=== PATIENT | female | born 1955 | race Caucasian/White ===

== ENCOUNTER 2019-09-04 11:10 | Outpatient (CLI) | payer MEDICARE, OTHER, SELFPAY ==
[2019-09-04 11:58] LABS: Basophils % 0.7 %; Eosinophils # 0.1 10^3/uL (0.0-0.8); Eosinophils % 1.8 %; Hematocrit 41.4 % (37.0-47.0); Hemoglobin 13.2 g/dL (11.5-15.3); Lymphocytes # 1.5 10^3/uL (0.8-4.8); Lymphocytes % 25.2 %; Mean Corpuscular HGB Conc 31.9 g/dL (30.0-36.0); Mean Corpuscular Hemoglobin 31.7 pg (28.0-34.0); Mean Corpuscular Volume 99.3 fL (81-99); Mean Platelet Volume 10.5 fL (7.4-10.4); Monocytes # 0.6 10^3/uL (0.2-0.9); Monocytes % 10.2 %; Neutrophils # 3.8 10^3/uL (1.8-7.7); Neutrophils % 61.9 %; Nucleated Red Blood Cells % 0 %; Platelet Count 245 10^3/cmm (130-400); Red Blood Count 4.17 10^6/uL (4.1-5.3); Red Cell Distribution Width 13.6 % (12.1-15.1); White Blood Count 6.1 10^3/uL (4.0-10.0)
[2019-09-04 12:11] LABS: Alanine Aminotransferase 17 U/L (0-33); Albumin Level 4.3 g/dL (3.5-5.2); Alkaline Phosphatase 129 IU/L (35-105); Anion Gap 16.1 (5-19); Aspartate Amino Transferase 26 U/L (0-32); Blood Urea Nitrogen 11 mg/dL (8-23); Calcium 9.1 mg/dL (8.5-10.5); Carbon Dioxide 21 mmol/L (22-29); Chloride 103 mmol/L (98-107); Ferritin 534 ng/mL (15-150); Globulin 3.2 g/dL (1.3-4.6); Glomerular Filtration Rate 123.4 mL/min (90-130); Glucose 108 mg/dL (65-115); Iron 77 ug/dL (37-145); Percent Saturation 38.3 % (20-50); Potassium 4.1 mmol/L (3.5-5.1); Sodium 136 mmol/L (136-145); Total Bilirubin 0.3 mg/dL (0.15-1.2); Total Iron Binding Capacity 201 mcg/dl; Total Protein 7.5 g/dL (6.6-8.7); Unsaturated Iron Binding 124 ug/dL (112-347)
--- NOTE | 2019-09-05 06:46 | ONC FU_ITS ---
Dr. Holloway Patient Follow-Up Note Patient: Sharla Barreto Unit #: [id number]: 1955 Dicatated By: Emmanuel Holloway M.D.Date of Visit:Sep 04, 2019 Onc Med Follow-up/Prog Note Chief Complaint: Anemia. History of Present Illness: This is 64 year-old woman with recurrent iron deficiency anemia. She also was found to have B12 deficiency. She has a complex medical history including systemic lupus erythematosus diagnosed in 1993 when she presented with seizures and diffuse anasarca. The main sequela of disease has been inflammatory arthritis. In 2010 she had an episode of severe anemia while on Imuran. She required 4 units of packed red blood cell transfusion. Endoscopy and colonoscopy in 2010 showed gastritis. She had normal biopsy of the terminal ileum. Her hemoglobin remained stable, with no further transfusions required for several years. She continued to be monitored with a CBC every 3-6 months. She required transfusion again in October 2014 in association with a hospitalization for pneumonia/sepsis. She was found to have a recurrent microcytic anemia on laboratory evaluation from 08/21/2014. Her hemoglobin measured 8.4 g/dL, MCV 80, RDW increased 18.3. She had slight left shift on differential with WBC 11.2, platelets 327. Imuran had been tapered off. Further laboratory analysis showed severe iron deficiency, with ferritin 7.4, iron saturation 4.9%. One 1 of 3 Hemoccult stools was positive. Her repeat colonoscopy on 08/29/2014 was unrevealing. She was first seen by Dr. Workman on 09/05/2014. With 5 doses of IV Venofer in August 2014 her hemoglobin recovered to 10.3 g/dL. She required transfusion again in October 2014 in association with a hospitalization for pneumonia/sepsis. She received further parenteral iron replacement with 2 doses of Injectafer in April 2015. She was then found to be anemic again in August 2016, requiring transfusion of 2 units of PRBC's on 08/17/2016. She was seen for a follow-up visit on 08/31/2016. Her CBC at that time showed hemoglobin 9.4 g with hypochromic/microcytic red cell indices. Her serum iron studies show transferrin saturation low at 6.9% with ferritin low at 7.9 ng/mL, consistent with iron deficiency. She was given further parenteral iron replacement with infusions of Injectafer on 09/22/2016 and 09/29/2016. She had a very good objective response with her repeat CBC in October 2016 showing hemoglobin increased to 13.6 g. As of 09/05/2017 her hemoglobin had dropped back to 7.9 g. At that time she did receive a transfusion of 2 units of packed red blood cells, and she was transfused again on 10/19/2017. Her repeat CBC from 01/18/2018 showed hemoglobin 9.3 g with hematocrit 29.0%. The red cell indices were normal. The white blood cell count was 6700 and the platelet count was 285,000. She was seen for a followup visit on 02/15/2018. Her hemoglobin was 7.0 g with borderline low RBC indices. The WBC was 3800 and the platelet count was 247,000. Her serum iron studies showed low transferrin saturation at 4.6% with ferritin low at 5.9 ng/mL, consistent with iron deficiency. Her B12 level also was low at 191 pg/mL. She was given parenteral iron replacement with infusions of Injectafer on 02/16/2018 and on 02/23/2018. She also began on B12 injections. Follow-up CBC on 03/26/2018 showed hemoglobin up to 12.8 g. On 04/11/2018 she underwent hiatal hernia repair at [facility]. She was placed on a restricted diet following the surgery, but she tolerated the procedure well. Her medical history is significant for rheumatoid arthritis, COPD, and GERD. She also has osteoporosis with associated vertebral compression fractures. She is a nonsmoker. INTERIM HISTORY: She was seen for a follow-up visit in June 2018. Her hemoglobin was normal at 13.1 g with white blood cell count mildly decreased at 3300 and platelet count normal at 260,000. She continued her monthly B12 injections. She is seen for a scheduled visit. She has been feeling good generally. She says her energy has been better since she has been on the B12 injections. She has normal activity. Her appetite is not very good. Her weight is down 6 pounds since her last visit. She has not had fever or night sweats. She says her breathing is also better. She is using inhalers. She does not complain of cough and she has not been having chest pain. She has had episodes of nausea and diarrhea at least 2 or 3 times a week since her hiatal hernia surgery. She is not having any overt GERD symptoms. She has no complaints. She does have joint pain. She has not been on any specific treatment for the rheumatoid arthritis. She has no focal neurologic symptoms. Medications: Albuterol Aerosol, solution Inhalation PRN, calcium magnesium zinc 3 Tablet daily, Dramamine 1 Tablet (of 50 mg) Oral t.i.d. PRN, Estradiol 1 Tablet (of 1 mg) Oral on F, FentaNYL 1 (50 mcg/hr) Patch 72 Hr Transdermal q 72 hours, Hydrocodone-Acetaminophen 1 Tablet (of 10-325 mg) Oral four times a day PRN, K-Tab 1 (20 meq) Tablet, controlled release Oral daily, Loratadine 1 Capsule (of 10 mg) Oral daily PRN, Spironolactone 1 (50 mg) Tablet Oral b.i.d. Allergies: Augmentin, Cipro, Methotrexate, and NSAIDS. Review of Systems: Constitutional - Her energy is better. She has normal activity. Her appetite is not very good and her weight is down about 5 pounds since her last visit. No fever, chills, hot flashes, or night sweats. ECOG score is 0, ENMT - No sinus congestion/drainage. No mouth sores. No sore throat or difficulty swallowing, Hematologic/Lymphatic - No abnormal bruising or bleeding, Respiratory - Her breathing is better. She continues to use her inhalers. No cough. No pleuritic pain or hemoptysis, Cardiovascular - No angina pain. No palpitations, Gastrointestinal - She has episodes of nausea and diarrhea 2-3 times a week. No heartburn or acid reflux. No blood in the stool or black stools, Genitourinary (F) - No dysuria or hematuria. No urinary frequency. No urgency or incontinence, Musculoskeletal - She has arthritis pain. She is currently not on any treatment for her RA, Integumentary - No skin complications, Neurologic - No headache or dizziness. No numbness/paresthesias or other focal neurologic symptoms, Psychiatric - No anxiety or depression. She does not sleep well at night. Vital Signs: Performed on Sep 04, 2019 12:48 Height - 58.00 in Weight - 117.8 lbs (LOW) BSA - 1.45 sq.m BMI - 24.62 Temperature - 98.5 F Pulse - 106 /min (HIGH) Respiration - 17 /min BP - 139/80 mm(hg) O2 Sat - 97 % Pain - 3 Physical Examination: Constitutional - She looks pretty good generally, Eyes - Sclerae nonicteric. Conjunctivae clear, ENMT - There are no lesions noted in the oral cavity, Hematologic/Lymphatic - No cervical, clavicular, or axillary adenopathy, Respiratory - Lungs are clear, Cardiovascular - Heart rhythm is regular. There is no murmur, gallop, or rub noted, Abdomen - Soft. Liver and spleen are not enlarged. There is no abdominal mass or ascites noted and there is no inguinal adenopathy, Extremities - No edema, Neurologic - No focal neurologic deficits noted. Lab/Imaging: Test performed on Sep 04, 2019 11:25 Ferritin 534 ng/mL Iron 77 ug/dL Sodium 136 mmol/L Potassium 4.1 mmol/L Chloride 103 mmol/L CO2 21 mmol/L UIBC 124 ug/dL Anion Gap 16.1 BUN 11 mg/dL Creatinine 0.5 mg/dL Cr Clearance (Est) 93.36 mL/min eGFR 123.4 mL/min Glucose 108 mg/dL Calcium 9.1 mg/dL Protein, Total 7.5 g/dL Albumin 4.3 g/dL Globulin 3.2 g/dL Bilirubin, Total 0.3 mg/dL ALT (SGPT) 17 U/L AST (SGOT) 26 U/L Alkaline Phosphatase 129 IU/L WBC 6.1 10 3/uL RBC 4.17 10 6/uL HGB 13.2 g/dL HCT 41.4 % MCV 99.3 fL MCH 31.7 pg MCHC 31.9 g/dL RDW 13.6 % Platelet Count 245 10 3/cmm MPV 10.5 fL Neutrophils 3.8 10 3/uL Lymphocytes 1.5 10 3/uL Monocytes 0.6 10 3/uL Eosinophils 0.1 10 3/uL Basophils 0.0 10 3/uL Neutrophil % 61.9 % Lymphocyte % 25.2 % Monocyte % 10.2 % Eosinophil % 1.8 % Basophils % 0.7 % Impression: 1. Patient with recurrent iron deficiency anemia. The cause is uncertain, but it appears to be due to inadequate oral iron absorption as her GI evaluation has been unrevealing. She was given parenteral iron replacement with the Venofer for in August 2014. 2. She has underlying rheumatoid arthritis, and she may have some component chronic disease anemia as well. 3. In October 2014 she required transfusion in association with an episode of multilobular pneumonia and sepsis. She received additional parenteral iron replacement with Injectafer in April 2015. 4. She again required transfusion in August 2016 in association with recurrent respiratory tract infections. Her other medical illnesses include: 5. COPD. 6. GERD. 7. Osteoporosis with vertebral compression fractures. In August 2016 she had become anemic again, severe enough that she did require transfusion. On a subsequent follow-up visit in August 2016, she was still mildly anemic and her serum studies were clearly consistent with iron deficiency. She received additional parenteral iron replacement with infusions of Injectafer on 09/22/2016 and 09/29/2016. She has had a good objective response. As of August 2017, she was significantly anemic again. She required transfusion of 2 units of PRBC on 09/07/2017 and again on 10/19/2017. As of 01/18/2018 she was still moderately anemic with hemoglobin 9.3 g and hematocrit 29%. Her red cell indices, though, were normal. As of her followup visit on 02/15/2018 she was still significantly anemic, hemoglobin 7.0 g. Her lab studies showed both iron deficiency and B12 deficiency. She has had a good objective response to replacement with parenteral iron and B12 injections. On 04/11/2018 she underwent hiatal hernia repair at [facility]. She tolerated the procedure well. During subsequent follow-up she has maintained normal hemoglobin/hematocrit levels and normal transferrin saturation. Overall, she appears to be doing well clinically. Plan: She will continue her monthly B12 injections. She will continue her regular followup with Dr. Lyon. I will see her again as needed. Signed By: Emmanuel Holloway M.D. <<Signature on File>>
== END 2019-09-04 11:11 | disposition home or self-care (01) ==
LOC: ONCMED 11:10
PROVIDERS: Family Provider Family Medicine; PCP Family Medicine; Visit Provider Internal Medicine Medical Oncology
DX: E53.8 Deficiency of other specified B group vitamins (principal); D50.9 Iron deficiency anemia, unspecified; M32.9 Systemic lupus erythematosus, unspecified; M06.9 Rheumatoid arthritis, unspecified; J44.9 Chronic obstructive pulmonary disease, unspecified; K21.9 Gastro-esophageal reflux disease without esophagitis; M81.0 Age-related osteoporosis without current pathological fracture; Z79.51 Long term (current) use of inhaled steroids; Z79.891 Long term (current) use of opiate analgesic; Z87.440 Personal history of urinary (tract) infections
CPT/HCPCS: 36415; 80053; 82728; 83540; 83550; 85025; G0463

== ENCOUNTER → 2019-10-09 13:04 | Outpatient (BNVA) | payer MEDICARE, OTHER, SELFPAY | PROVIDERS: Family Provider Family Medicine; PCP Family Medicine; Visit Provider Family Medicine | DX: M25.531 Pain in right wrist (principal); S52.91XA Unspecified fracture of right forearm, initial encounter for closed fracture; X58.XXXA Exposure to other specified factors, initial encounter | CPT/HCPCS: 73110 ==

== ENCOUNTER 2019-10-10 11:13 | Outpatient (CLI) | payer MEDICARE, OTHER, SELFPAY | END 2019-10-10 11:14 | disposition home or self-care (01) | LOC: SPT 11:14 | PROVIDERS: Family Provider Family Medicine; PCP Family Medicine; Visit Provider Specialist | DX: Z46.89 Encounter for fitting and adjustment of other specified devices (principal); S52.591D Other fractures of lower end of right radius, subsequent encounter for closed fracture with routine healing; X58.XXXD Exposure to other specified factors, subsequent encounter | CPT/HCPCS: L3982 ==

== ENCOUNTER → 2019-10-29 11:06 | Outpatient (BNVA) | payer MEDICARE, OTHER, SELFPAY | PROVIDERS: Family Provider Family Medicine; PCP Family Medicine; Visit Provider Specialist | DX: S52.501A Unspecified fracture of the lower end of right radius, initial encounter for closed fracture (principal); S52.601A Unspecified fracture of lower end of right ulna, initial encounter for closed fracture | CPT/HCPCS: 73110 ==

== ENCOUNTER → 2019-11-20 11:14 | Outpatient (BNVA) | payer MEDICARE, OTHER, SELFPAY | PROVIDERS: Family Provider Family Medicine; PCP Family Medicine; Visit Provider Specialist | DX: S52.501A Unspecified fracture of the lower end of right radius, initial encounter for closed fracture (principal); S52.601A Unspecified fracture of lower end of right ulna, initial encounter for closed fracture; X58.XXXA Exposure to other specified factors, initial encounter | CPT/HCPCS: 73110 ==

== ENCOUNTER 2019-12-03 10:27 | Outpatient (RCR) | payer MEDICARE, OTHER, SELFPAY | END 2019-12-19 23:00 | disposition home or self-care (01) | LOC: SOT 10:27 | PROVIDERS: PCP Family Medicine; Referring Provider Specialist; Visit Provider Specialist | DX: S52.501D Unspecified fracture of the lower end of right radius, subsequent encounter for closed fracture with routine healing (principal); X58.XXXD Exposure to other specified factors, subsequent encounter | CPT/HCPCS: 97110; 97140; 97167 ==

== ENCOUNTER → 2019-12-16 11:27 | Outpatient (BNVA) | payer MEDICARE, OTHER, SELFPAY | PROVIDERS: PCP Family Medicine; Visit Provider Specialist | DX: S52.501D Unspecified fracture of the lower end of right radius, subsequent encounter for closed fracture with routine healing (principal); S52.601D Unspecified fracture of lower end of right ulna, subsequent encounter for closed fracture with routine healing; X58.XXXD Exposure to other specified factors, subsequent encounter | CPT/HCPCS: 73110 ==

== ENCOUNTER 2019-12-16 12:15 | Outpatient (CLI) | payer MEDICARE, OTHER, SELFPAY | END 2019-12-16 12:16 | disposition home or self-care (01) | LOC: SPT 12:16 | PROVIDERS: PCP Family Medicine; Visit Provider Specialist | DX: Z46.89 Encounter for fitting and adjustment of other specified devices (principal); S52.591D Other fractures of lower end of right radius, subsequent encounter for closed fracture with routine healing; S52.691D Other fracture of lower end of right ulna, subsequent encounter for closed fracture with routine healing; X58.XXXD Exposure to other specified factors, subsequent encounter; S52.501D Unspecified fracture of the lower end of right radius, subsequent encounter for closed fracture with routine healing; S52.601D Unspecified fracture of lower end of right ulna, subsequent encounter for closed fracture with routine healing | CPT/HCPCS: 73110; 97760; L3908 ==

== ENCOUNTER 2020-01-14 14:12 | Outpatient (CLI) | payer MEDICARE, OTHER, SELFPAY ==
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
== END 2020-01-14 14:13 | disposition home or self-care (01) ==
LOC: RADWPI 14:15
PROVIDERS: Family Provider Family Medicine; PCP Family Medicine; Visit Provider Family Medicine
DX: S99.921A Unspecified injury of right foot, initial encounter (principal); L53.9 Erythematous condition, unspecified; X58.XXXA Exposure to other specified factors, initial encounter
CPT/HCPCS: 73620

== ENCOUNTER 2021-01-12 14:42 | Outpatient (CLI) | payer MEDICARE, OTHER, SELFPAY ==
[2021-01-12 15:14] LABS: Add Urine Microscopic? YES; Bilirubin Urine Neg (Negative); Blood Urine 2+ (Negative); Glucose Urine UA Norm (Normal); Ketones Urine Negative (Negative); Leukocyte Esterase Urine 2+ (Negative); Nitrate Urine Positive (Negative); Protein Urine Trace (Negative); Urine Appearance SL Hazy (CLEAR); Urine Color Yellow (Yellow); Urobilinogen Urine Norm (Negative); pH Urine 5 (5-7)
[2021-01-12 15:15] LABS: Add Urine Culture? Yes; Bacteria Urine 3+ /hpf; Mucus Urine 1+ /hpf; WBC Urine 15-25 /hpf (0-5)
== END 2021-01-12 14:43 | disposition home or self-care (01) ==
PROVIDERS: PCP Family Medicine; Visit Provider Family Medicine
DX: R30.0 Dysuria (principal); N89.8 Other specified noninflammatory disorders of vagina; R82.90 Unspecified abnormal findings in urine
CPT/HCPCS: 81001; 87077; 87086; 87186

== ENCOUNTER 2021-05-08 10:57 | Emergency (ER) | payer OTHER, MEDICARE, SELFPAY ==
[2021-05-08 10:59] VITALS: BP 134/75; PULSE 97; RESP 16; TEMP 37.1; O2SAT 94; BMI 24.4
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
[2021-05-08 13:30] VITALS: BP 131/70; PULSE 97; RESP 16; O2SAT 94
--- NOTE | 2021-05-12 10:50 | DCPLANNER ---
manager of exhibitions and collections had message to speak with patient about getting a follow up appointment with primary care physician. manager of exhibitions and collections called phone number [phone], unable to speak with patient at this time, a voicemail was left for patient to return case liner phone call.
== END 2021-05-08 13:31 | disposition home or self-care (01) ==
PROVIDERS: Emergency Provider Emergency Medicine; PCP Family Medicine
DX: M79.641 Pain in right hand (principal); V89.2XXA Person injured in unspecified motor-vehicle accident, traffic, initial encounter
CPT/HCPCS: 29125; 73090; 73100; 73130; 99283

== ENCOUNTER 2021-05-12 09:18 | Outpatient (CLI) | payer MEDICARE, OTHER, SELFPAY ==
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
== END 2021-05-12 09:19 | disposition home or self-care (01) ==
LOC: RAD 09:22
PROVIDERS: PCP Family Medicine; Visit Provider Family Medicine
DX: M25.561 Pain in right knee (principal)
CPT/HCPCS: 73562

== ENCOUNTER → 2021-06-09 13:52 | Outpatient (BNVA) | payer MEDICARE, OTHER, SELFPAY | PROVIDERS: PCP Family Medicine; Referring Provider Family Medicine; Visit Provider Specialist | DX: S82.024A Nondisplaced longitudinal fracture of right patella, initial encounter for closed fracture; W10.9XXA Fall (on) (from) unspecified stairs and steps, initial encounter; M25.561 Pain in right knee; M17.11 Unilateral primary osteoarthritis, right knee; M85.88 Other specified disorders of bone density and structure, other site | CPT/HCPCS: 73560; 73565 ==

== ENCOUNTER 2022-06-09 13:07 | Inpatient (IN) | payer MEDICARE, OTHER, SELFPAY ==
[2022-06-09] VITALS (12 sets, daily range): BP systolic 107–166; BP diastolic 61–80; PULSE 74–129; RESP 15–24; TEMP 36.6–37.8; O2SAT 91–95; BMI 23.6
--- NOTE | 2022-06-09 13:23 | ECG_ITS ---
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 Measurements Intervals [place] Rate: 102 P: 65 NC: 127 QRS: 62 QRSD: 89 T: 28 QT: 311 QTc: 406 Interpretive Statements SINUS TACHYCARDIA POSSIBLE RIGHT VENTRICULAR CONDUCTION DELAY [RSR (QR) IN V1/V2] MODERATE T-WAVE ABNORMALITY, CONSIDER ANTERIOR ISCHEMIA [-0.1+ mV T-WAVE IN V3/V4] Compared to ECG 01/18/2018 12:20:22 Sinus rhythm no longer present Incomplete right bundle-branch block no longer present T-wave abnormality still present Possible ischemia still present Electronically Signed On 06-09-2022 13:46:36 AUTOMOTIVE PARTS PERSON by Jaxson Colby M.D. [id number]
--- NOTE | 2022-06-09 13:23 | XR_ITS ---
WS: [id number] EXAMINATION: XR chest 1V portable [id number] REASON FOR EXAM: dyspnea/cough COMPARISON: 01/18/2018 ORDER DATE: 06/09/2022 1:48 PM TECHNIQUE: A single, portable frontal chest x-ray was obtained. X-RAY FINDINGS: Lungs are clear and well expanded. No pleural effusion or pneumothorax. Cardiac size: Mildly enlarged cardiac silhouette. Mediastinum/Aorta: Large size hiatal hernia. Mild atherosclerosis of the aorta. Prior vertebroplasties in the lower thoracic spine. XR/XR chest 1V portable [id number] IMPRESSION: 1. No acute cardiopulmonary disease. 2. Large hiatal hernia.
--- NOTE | 2022-06-09 13:38 | ED_ITS ---
HPI - SOB/Dyspnea General: Chief Complaint: Shortness of Breath/Dyspnea Stated Complaint: sob Time Seen by Provider: 06/09/22 13:22 Source: patient Mode of arrival: ambulatory History of Present Illness: HPI Narrative: 58-year-old female presents emergency room complaining of shortness of breath. She has a history of COPD she was having difficulty breathing at home she is not normally on oxygen. She is requiring 2 L by nasal cannula to maintain sats in the low 90s. She is tachycardic and tachypneic. She is complaining of productive cough its been progressively worsening. She has not had any diarrhea or vomiting. She has not noted any fever. MD elicited complaint: shortness of breath and cough Pertinent past history: COPD Onset (ago): hour(s) Timing: constant and progressively worsening Severity: moderate Exacerbating factors: movement and coughing Known history of: COPD Associated symptoms: Reports cough; Deny abdominal pain, chest congestion, chest pain, diaphoresis, dizziness, extremity pain, fever(s), hemoptysis, lightheadedness, myalgias, nausea, orthop sumit, palpitations, paresthesias, polydipsia, polyuria, rash, sense of impending doom, syncope or vomiting Treatment prior to arrival: none Review of Systems Const: Denies: fever(s), chills or diaphoresis Card: Denies: chest pain, palpitations, lightheadedness, syncope or orthopnea Resp: Reports: dyspnea, productive cough and wheezing; Denies: non-productive cough, hemoptysis or chest congestion GI: Denies: abdominal pain, nausea or vomiting Musc: Denies: extremity pain Neuro: Denies: dizziness Endo: Denies: polyuria or polydipsia PFSH ED PFSH: Medical History (Updated 06/18/22 @ 17:00 by Richard Ayala DO) Arthritis, rheumatoid COPD (chronic obstructive pulmonary disease) Lupus Surgical History (Updated 06/09/22 @ 17:22 by Chin Langley MD) History of section History of hip surgery History of hysterectomy History of kyphoplasty Family History (Updated 06/09/22 @ 17:23 by Chin Langley MD) Mother Lupus Social History (Updated 06/09/22 @ 17:23 by Chin Langley MD) Smoking and tobacco status: never smoked Alcohol intake: never Physical Exam Const: GENERAL APPEARANCE: cooperative and comfortable ORIENTATION/CONSCIOUSNESS: Yes awake, Yes oriented to person, Yes oriented to place and Yes oriented to time HENMT: COMMON NORMALS: normocephalic, atraumatic and hearing grossly normal bilaterally HEAD & SCALP: normocephalic and atraumatic Resp: COMMON NORMALS: normal respiratory effort, No retractions, No use of accessory muscles and clear to auscultation bilaterally AUSCULTATION: clear to auscultation bilaterally Cardio: COMMON NORMALS: regular rate, regular rhythm and No murmurs present (Cardio) RATE: regular rate RHYTHM: regular rhythm GI: COMMON NORMALS: Soft to palpation and No hepatosplenomegaly present AUSCULTATION: Yes normoactive bowel sounds PALPATION: Yes Soft to palpation, No Tenderness to palpation present (GI), No Guarding due to palpation present (GI) and Yes No hepatosplenomegaly present Extremity: COMMON NORMALS: normal to inspection, capillary refill normal, no clubbing, cyanosis or edema, no calf tenderness and no pedal edema Neuro: SENSORIUM/ORIENTATION: Yes oriented to person, Yes oriented to place and Yes oriented to time Skin: COMMON NORMALS: no rashes or lesions noted GENERAL SKIN EXAM: no rashes or lesions noted Course Vital Signs: Vital signs: Vital Signs Temperature 98.3 F 06/12/22 15:02 Pulse Rate 88 06/12/22 15:02 Respiratory Rate 20 H 06/12/22 15:02 Blood Pressure 125/75 06/12/22 15:02 Pulse Oximetry 94 06/12/22 15:02 Oxygen Delivery Me thod 06/12/22 08:30 Oxygen Flow Rate 2 06/12/22 08:00 MDM - SOB/Dyspnea Medical Decision Making Cute exacerbation of COPD admit for steroids and aggressive pulmonary toilet. Patient also has a history of rheumatoid arthritis discussed with hospitalist orders written Medical Records I reviewed the patient's medical records. Lab Data I reviewed the patient's lab results. 06/09/22 13:48 06/09/22 14:20 Labs/Radiology: Radiology Impressions Chest X-Ray 06/09/22 13:23 IMPRESSION: 1. No acute cardiopulmonary disease. 2. Large hiatal hernia. Laboratory Results WBC 5.3 10^3/uL (4.0-10.0) 06/09/22 13:48 RBC 4.56 10^6/uL (4.1-5.3) 06/09/22 13:48 Hgb 15.5 g/dL (11.5-15.3) H 06/09/22 13:48 Hct 46.7 % (37.0-47.0) 06/09/22 13:48 MCV 102.4 fl (81-99) H 06/09/22 13:48 MCH 34.0 pg (28.0-34.0) 06/09/22 13:48 MCHC 33.2 g/dL (30.0-36.0) 06/09/22 13:48 RDW 12.7 % (12.1-15.1) 06/09/22 13:48 Plt Count 176 10^3/cmm (130-400) 06/09/22 13:48 MPV 10.6 fL (7.4-10.4) H 06/09/22 13:48 Neut % (Auto) 85.6 % 06/09/22 13:48 Lymph % (Auto) 8.1 % 06/09/22 13:48 Elk % (Auto) 5.3 % 06/09/22 13:48 Eos % (Auto) 0.0 % 06/09/22 13:48 Baso % (Auto) 0.6 % 06/09/22 13:48 Neut # (Auto) 4.56 10^3/uL (1.8-7.7) 06/09/22 13:48 Lymph # (Auto) 0.4 10^3/uL (0.8-4.8) L 06/09/22 13:48 Elk # (Auto) 0.3 10^3/uL (0.2-0.9) 06/09/22 13:48 Eos # (Auto) 0.0 10^3/uL (0.0-0.8) 06/09/22 13:48 Baso # (Auto) 0.0 10^3/uL (0.0-0.1) 06/09/22 13:48 Nucleated RBC % (auto) 0 % 06/09/22 13:48 Nucleated RBCs # 0.0 /100WBC 06/09/22 13:48 Sodium 133 mmol/L (136-145) L 06/09/22 14:20 Potassium 3.6 mmol/L (3.5-5.1) 06/09/22 14:20 Chloride 95 mmol/L (98-107) L 06/09/22 14:20 Carbon Dioxide 26 mmol/L (22-29) 06/09/22 14:20 Anion Gap 15.6 (5-19) 06/09/22 14:20 BUN 4 mg/dL (8-23) L 06/09/22 14:20 Creatinine 0.3 mg/dL (0.5-0.9) L 06/09/22 14:20 GFR Calculation 221.2 mL/min (90-130) H 06/09/22 14:20 Glucose 183 mg/dL (65-115) H 06/09/22 14:20 Calculated Osmolality 278 mOsm/kg (285-295) L 06/09/22 14:20 Calcium 9.0 mg/dL (8.5-10.5) 06/09/22 14:20 Total Bilirubin 0.3 mg/dL (0.15-1.2) 06/09/22 14:20 AST 40 U/L (0-32) H 06/09/22 14:20 ALT 34 U/L (0-33) H 06/09/22 14:20 Alkaline Phosphatase 107 U/L (35-105) H 06/09/22 14:20 Total Protein 7.8 g/dL (6.6-8.7) 06/09/22 14:20 Albumin 4.4 g/dL (3.5-5.2) 06/09/22 14:20 Globulin 3.4 g/dL (1.3-4.6) 06/09/22 14:20 Procalcitonin 0.05 ng/mL (0-0.5) 06/09/22 14:34 Urine Color Yellow (Yellow) 06/09/22 15:30 Urine Appearance Clear (CLEAR) 06/09/22 15:30 Urine pH 6 (5-7) 06/09/22 15:30 Ur Specific Adel 1.010 (1.005-1.030) 06/09/22 15:30 Urine Protein Neg (Negative) 06/09/22 15:30 Urine Glucose (UA) 2+ (Normal) H 06/09/22 15:30 Urine Ketones 2+ (Negative) H 06/09/22 15:30 Urine Blood Neg (Negative) 06/09/22 15:30 Urine Nitrate Negative (Negative) 06/09/22 15:30 Urine Bilirubin Neg (Negative) 06/09/22 15:30 Urine Urobilinogen 1 mg/dL (Negative) H 06/09/22 15:30 Ur Leukocyte Esterase Negative (Negative) 06/09/22 15:30 Coronavirus 229E (PCR) Not detected (NOT DETECT) 06/09/22 14:22 Influenza Type A Ag Cancelled 06/09/22 14:22 Influenza Type B Ag Cancelled 06/09/22 14:22 SARS-CoV-2 (PCR) Not detected (NOT DETECT) 06/09/22 14:22 Discharge Plan Discharge Patient Disposition: Admitted As Inpatient Admit Provider: Chin Langley Clinical Impression: Acute exacerbation of chronic obstructive airways disease Condition: Stable Coding Level of 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
[2022-06-09] MEDS: ipratropium-albuterol 3 mL Neb INHALATION ×3 (13:41→23:33)
[2022-06-09 13:57] LABS: Basophils % 0.6 %; Hematocrit 46.7 % (37.0-47.0); Hemoglobin 15.5 g/dL (11.5-15.3); Lymphocytes # 0.4 10^3/uL (0.8-4.8); Lymphocytes % 8.1 %; Mean Corpuscular HGB Conc 33.2 g/dL (30.0-36.0); Mean Corpuscular Volume 102.4 fl (81-99); Mean Platelet Volume 10.6 fL (7.4-10.4); Monocytes # 0.3 10^3/uL (0.2-0.9); Monocytes % 5.3 %; Neutrophils # 4.56 10^3/uL (1.8-7.7); Neutrophils % 85.6 %; Nucleated Red Blood Cells % 0 %; Platelet Count 176 10^3/cmm (130-400); Red Blood Count 4.56 10^6/uL (4.1-5.3); Red Cell Distribution Width 12.7 % (12.1-15.1); White Blood Count 5.3 10^3/uL (4.0-10.0)
--- NOTE | 2022-06-09 14:29 | PC.NURSE ---
PT PLACED ON CONTINUOUS NIBP, SPO2, AND CM
--- NOTE | 2022-06-09 14:35 | ECG_ITS ---
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 Measurements Intervals [place] Rate: 125 P: 85 [place]: 127 QRS: 148 QRSD: 86 T: 73 QT: 336 QTc: 484 Interpretive Statements SINUS TACHYCARDIA POSSIBLE RIGHT VENTRICULAR HYPERTROPHY [SOME/ALL OF: PROMINENT R IN V1, LATE TRANSITION, RAD, LUKAS, SSS] ST DEVIATION AND MODERATE T-WAVE ABNORMALITY, CONSIDER ANTERIOR ISCHEMIA [-0.1+ mV T-WAVE IN V3/V4] Compared to ECG 06/09/2022 13:33:47 No significant changes Electronically Signed On 06-09-2022 15:29:50 ADMINISTRATOR PESTICIDE by Jaxson Colby M.D. [id number]
[2022-06-09 14:49] LABS: Alanine Aminotransferase 34 U/L (0-33); Albumin Level 4.4 g/dL (3.5-5.2); Alkaline Phosphatase 107 U/L (35-105); Anion Gap 15.6 (5-19); Aspartate Amino Transferase 40 U/L (0-32); Blood Urea Nitrogen 4 mg/dL (8-23); Carbon Dioxide 26 mmol/L (22-29); Chloride 95 mmol/L (98-107); Globulin 3.4 g/dL (1.3-4.6); Glomerular Filtration Rate 221.2 mL/min (90-130); Glucose 183 mg/dL (65-115); Osmolality Calculated 278 mOsm/kg (285-295); Potassium 3.6 mmol/L (3.5-5.1); Sodium 133 mmol/L (136-145); Total Bilirubin 0.3 mg/dL (0.15-1.2); Total Protein 7.8 g/dL (6.6-8.7)
[2022-06-09] MEDS: sodium chloride 0.9% 1,000 ML 999 ML IV (15:17)
[2022-06-09 15:51] LABS: Add Urine Microscopic? NO; Charge for UA Resulting for Rev
[2022-06-09 16:16] LABS: Bilirubin Urine Neg (Negative); Blood Urine Neg (Negative); Glucose Urine UA 2+ (Normal); Ketones Urine 2+ (Negative); Leukocyte Esterase Urine Negative (Negative); Nitrate Urine Negative (Negative); Protein Urine Neg (Negative); Urine Appearance Clear (CLEAR); Urine Color Yellow (Yellow); Urobilinogen Urine 1 mg/dL (Negative); pH Urine 6 (5-7)
--- NOTE | 2022-06-09 17:13 | P.HP_ITS ---
Providers/Chief Complaint Admitting Physician: Chin Langley MD Primary Care Provider: Brigid Lyon MD Chief Complaint: sob History of Present Illness Sharla Barreto is a 66 year old female with a past medical history significant for rheumatoid arthritis, COPD, and lupus who presents to the emergency department with shortness of breath x2 days. She endorses a history of COPD. She states she does not know why she has COPD. States that she is never smoked. She reports exertion worsens her symptoms. Denies significant alleviating factors. She was found to be tachycardic and tachypneic in the emergency department. She was found to be hypoxic requiring 2 L nasal cannula. She denies prior oxygen needs. She denies chest pain, fevers, chills, or abdominal pain. Review of Systems Narrative: A complete review of systems was obtained and is negative except as stated in HPI. Medications/Allergies Home Medications Medication Instructions Recorded Confirmed Last Taken Type fentanyl 50 mcg/hr transdermal 1 patch transdermal Q72H 10/09/19 06/09/22 06/09/22 History patch on right side chest albuterol sulfate 90 mcg/actuation 2 puff inhalation Q4H PRN 06/09/22 06/09/22 Unknown History aerosol inhaler Shortness Of Breath colestipol 1 gram tablet 1 g PO .UP TO TID 06/09/22 06/09/22 06/09/22 12:00 History see pharmacy comment diphenoxylate-atropine 2.5 1 tab PO TID PRN Diarrhea 06/09/22 06/09/22 Unknown History mg-0.025 mg tablet estradiol 1 mg tablet 1 mg PO Q7D 06/09/22 06/09/22 06/06/22 History see pharmacy comment fluticasone propionate 110 2 puff inhalation BID 06/09/22 06/09/22 Unknown History mcg/actuation HFA aerosol inhaler (Flovent HFA) hydrocodone 10 mg-acetaminophen 1 tab PO Q6H PRN Pain 06/09/22 06/09/22 06/09/22 08:30 History 325 mg tablet potassium chloride 20 mEq 20 meq PO QAM 06/09/22 06/09/22 06/09/22 History tablet,extended release(part/cryst) Allergies Allergy/AdvReac Type Severity Reaction Status Date / Time amoxicillin [From Augmentin] Allergy RASH Verified 06/09/22 14:34 ciprofloxacin [From Cipro] Allergy RASH Verified 06/09/22 14:34 clavulanic acid Allergy RASH Verified 06/09/22 14:34 [From Augmentin] methotrexate Allergy RASH Verified 06/09/22 14:34 NSAIDS (Non-Steroidal Allergy RASH Verified 06/09/22 14:34 Anti-Inflamma PFSH Acute PFSH: Medical History (Updated 06/09/22 @ 17:30 by Chin Langley MD) Arthritis, rheumatoid COPD (chronic obstructive pulmonary disease) Lupus Surgical History (Updated 06/09/22 @ 17:22 by Chin Langley MD) History of section History of hip surgery History of hysterectomy History of kyphoplasty Family History (Updated 06/09/22 @ 17:23 by Chin Langley MD) Mother Lupus Social History (Updated 06/09/22 @ 17:23 by Chin Langley MD) Smoking and tobacco status: never smoked Alcohol intake: never Substance/Drug Use: never Vitals/I&O/Wt Last Vital Signs Temp 98.7 F 06/09/22 13:12 Pulse 114 H 06/09/22 16:10 Resp 18 06/09/22 14:30 BP 131/61 06/09/22 16:10 Pulse Ox 94 06/09/22 16:10 O2 Del Method 06/09/22 14:17 O2 Flow Rate 2 06/09/22 14:17 Weight last 48 hrs Weight 51.256 kg Physical Exam Narrative: General: Patient is awake and alert. Kyphotic. Head: Normocephalic. Atraumatic. EOM intact. Neck: No JVD. Cardiovascular: No gallops. No murmurs. No peripheral edema. Tachycardic. Lungs: Very limited air movement on exam. Tachypneic. End expiratory wheezing. On nasal cannula. Skin: No jaundice. No rashes. Abdomen: Normal bowel sounds, abdomen soft and nontender. Genito Urinary: Genital exam not performed since complaints not related. Rectal: Rectal exam not performed since no symptoms indicated blood loss. Extremities: No cyanosis or clubbing. Musculoskeletal: Rheumatic appearing joints. Neurological: Moves all 4 extremities. No myoclonus. Data 06/09/22 13:48 06/09/22 14:20 A&P Assessment and plan (1) COPD (chronic obstructive pulmonary disease): Acute COPD exacerbation with acute hypoxia Start Solu-Medrol Start scheduled DuoNebs Telemetry with continuous pulse oximetry Procalcitonin ordered Start azithromycin (2) Arthritis, rheumatoid: Continue home fentanyl patch Continue home oral opiates (3) Lupus: Not in acute exacerbation (4) Transaminitis: This is likely viral in origin Trend liver function testing Attestations Medical Necessity Statement*: Patient presents with acute COPD exacerbation with new onset hypoxia requiring supplemental oxygen support, IV steroids and breathing treatments with expected hospitalization not to cross 2 midnights Coding Level of Care 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
[2022-06-09 18:10] LABS: Adenovirus Not Detected (NOT DETECT); Chlamydia Pneumoniae Not Detected (NOT DETECT); Coronavirus 229E,HKU1,NL63,OC4 Not Detected (NOT DETECT); Human Metapneumovirus Not Detected (NOT DETECT); Human Rhinovirus/Enterovirus Not Detected (NOT DETECT); Influenza A Detected (NOT DETECT); Influenza A H1 Not Detected (NOT DETECT); Influenza A H1-2009 Detected (NOT DETECT); Influenza A H3 Not Detected (NOT DETECT); Influenza B Not Detected (NOT DETECT); Mycoplasma Pneumoniae Not Detected (NOT DETECT); Parainfluenza Virus Type 1 Not Detected (NOT DETECT); Parainfluenza Virus Type 2 Not Detected (NOT DETECT); Parainfluenza Virus Type 3 Not Detected (NOT DETECT); Parainfluenza Virus Type 4 Not Detected (NOT DETECT); Respiratory Syncytial Virus A Not Detected (NOT DETECT); Respiratory Syncytial Virus B Not Detected (NOT DETECT); SARS-COV-2 Not Detected (NOT DETECT)
[2022-06-09] MEDS: sodium chloride 0.9% 1,000 ML 100 ML IV (18:13)
[2022-06-09 18:15] LABS: Influenza A Detected (NOT DETECT); Influenza A H1 Not Detected (NOT DETECT); Influenza A H1-2009 Detected (NOT DETECT); Influenza A H3 Not Detected (NOT DETECT); Influenza B Not Detected (NOT DETECT); Results from GEN
[2022-06-09] MEDS: enoxaparin 40 mg/0.4 mL Syringe SUBCUT (18:20)
[2022-06-09] MEDS: azithromycin 500 MG in sodium chloride 0.9% 250 ML 250 MG IV (18:20)
--- NOTE | 2022-06-09 18:34 | PC.NURSE ---
PT ADMITTED FROM ER. TWO 50MCG FENTANYL PATCHES ON PT RIGHT AND LEFT CHEST. PT REPORTS THAT SHE NEEDS TO TAKE THE OLD ONE OFF. FENTANYL PATCH FROM LEFT SIDE REMOVED. THIS NURSE WASTED PATCH WITH ARIANNA APODACA. RIGHT FENTANYL PATCH LABELED HOME 06/09/2022 .
[2022-06-09] MEDS: budesonide 0.5 mg/2 mL Neb INHALATION (20:23)
[2022-06-09 21:48] LABS: Procalcitonin 0.05 ng/mL (0-0.5)
[2022-06-09] MEDS: acetaminophen 325 mg Tablet 650 MG PO (22:14)
[2022-06-10] VITALS (17 sets, daily range): BP systolic 105–132; BP diastolic 52–84; PULSE 66–100; RESP 15–20; TEMP 36.4–36.9; O2SAT 92–98
[2022-06-10 03:08] LABS: Hematocrit 43.2 % (37.0-47.0); Hemoglobin 14.1 g/dL (11.5-15.3); Lymphocytes # 0.4 10^3/uL (0.8-4.8); Lymphocytes % 5.4 %; Mean Corpuscular HGB Conc 32.6 g/dL (30.0-36.0); Mean Corpuscular Hemoglobin 33.9 pg (28.0-34.0); Mean Corpuscular Volume 103.8 fl (81-99); Mean Platelet Volume 10.4 fL (7.4-10.4); Monocytes # 0.2 10^3/uL (0.2-0.9); Monocytes % 2.4 %; Neutrophils # 6.16 10^3/uL (1.8-7.7); Neutrophils % 91.9 %; Nucleated Red Blood Cells % 0 %; Platelet Count 159 10^3/cmm (130-400); Red Blood Count 4.16 10^6/uL (4.1-5.3); Red Cell Distribution Width 12.7 % (12.1-15.1); White Blood Count 6.7 10^3/uL (4.0-10.0)
[2022-06-10] MEDS: ipratropium-albuterol 3 mL Neb INHALATION ×5 (03:09→23:57)
[2022-06-10 03:32] LABS: Alanine Aminotransferase 29 U/L (0-33); Albumin Level 3.7 g/dL (3.5-5.2); Alkaline Phosphatase 92 U/L (35-105); Aspartate Amino Transferase 34 U/L (0-32); Blood Urea Nitrogen 7 mg/dL (8-23); Calcium 8.9 mg/dL (8.5-10.5); Carbon Dioxide 26 mmol/L (22-29); Chloride 99 mmol/L (98-107); Globulin 3.4 g/dL (1.3-4.6); Glomerular Filtration Rate 158.7 mL/min (90-130); Glucose 220 mg/dL (65-115); Osmolality Calculated 289 mOsm/kg (285-295); Sodium 137 mmol/L (136-145); Total Bilirubin 0.2 mg/dL (0.15-1.2); Total Protein 7.1 g/dL (6.6-8.7)
[2022-06-10 03:50] LABS: Anion Gap 15.1 (5-19); Potassium 3.1 mmol/L (3.5-5.1)
[2022-06-10] MEDS: potassium chloride ER 20 mEq Tablet 40 MEQ PO (04:28)
--- NOTE | 2022-06-10 07:38 | PC.NURSE ---
PT POTASSIUM 3.1. SHE HAD A DOSE OF 40MEQ AT 0430 FROM [facility]OSPITAL[facility]. SHE HAS ORDER FOR 20MEQ AT 0700, AND ANOTHER ORDER FOR 20MEQ AT 0900. DR. URIBE STATES TO ADMINISTER ONE DOSE OF 20MEQ, NOT BOTH.
--- NOTE | 2022-06-10 08:23 | PM.PN ---
Subjective Subjective: Patient reports continued shortness of breath. Endorses cough. Reports generalized malaise and fatigue. Reports poor oral intake. Denies abdominal pain or focal weakness. Medications: Reviewed: Yes Vitals/I&O/Wt Last Vital Signs Temp 98.4 F 06/10/22 07:27 Pulse 71 06/10/22 07:27 Resp 16 06/10/22 07:27 BP 123/68 06/10/22 07:27 Pulse Ox 97 06/10/22 07:27 O2 Del Method 06/10/22 07:27 O2 Flow Rate 2 06/10/22 03:09 06/09/22 06/10/22 06/10/22 22:59 06:59 14:59 Intake Total 1250 / 1250 1000 / 2250 Balance 1250 / 1250 1000 / 2250 Weight last 48 hrs Weight 51.256 kg Weight 51.256 kg Physical Exam Narrative: General: Patient is awake. In moderate distress. Kyphotic. Head: Normocephalic. Atraumatic. EOM intact. Neck: No JVD. Cardiovascular: No gallops. No murmurs. No peripheral edema. Lungs: Poor air movement. End expiratory wheezing. Skin: No jaundice. No rashes. Abdomen: Normal bowel sounds, abdomen soft and nontender. Genito Urinary: Genital exam not performed since complaints not related. Rectal: Rectal exam not performed since no symptoms indicated blood loss. Extremities: No cyanosis or clubbing. Musculoskeletal: Rheumatic appearing joints. Neurological: Moves all 4 extremities. No myoclonus. Data 06/10/22 02:40 06/10/22 02:40 A&P Assessment and plan (1) COPD (chronic obstructive pulmonary disease): Acute COPD exacerbation with acute hypoxia Continue Solumedrol Continue scheduled DuoNebs Continue azithromycin Telemetry with continuous pulse oximetry (2) Influenza A: Start Tamiflu Droplet precautions (3) Arthritis, rheumatoid: Continue home fentanyl patch Continue home oral opiates (4) Lupus: Not in acute exacerbation (5) Transaminitis: Improving Secondary to flu Plan DVT prophylaxis: Lovenox CODE STATUS full code Attestations Medical Necessity Statement*: Patient requires ongoing hospitalization for IV antibiotics, IV steroids, breathing treatments, supplemental oxygen support and supportive care. 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
[2022-06-10] MEDS: oseltamivir phosphate 75 mg Capsule PO ×2 (08:30→18:07)
[2022-06-10] MEDS: potassium chloride ER 20 mEq Tablet PO (08:30)
[2022-06-10] MEDS: budesonide 0.5 mg/2 mL Neb INHALATION ×2 (08:32→20:09)
[2022-06-10] MEDS: diphenoxylate/atropine Tablet 1 TAB PO ×2 (09:38→18:07)
[2022-06-10] MEDS: HYDROcodone-acetaminophen 10-325 mg Tablet 1 TAB PO ×2 (09:42→19:25)
--- NOTE | 2022-06-10 11:11 | PC.CHAP ---
Pastoral Care Encounter/Spiritual Assessment Type of Contact [] Declined kitchen porter visit [] Patient/Family/Request visit [] Outpatient visit [] Follow-up visit [] Physician referral [] Code/Alert [x] Routine visit [] Staff referral [] Actively dying [] Patient sleeping [] Family support [] [] Out of room [] Palliative care [] [] Receiving care in room [] Pre-surgical visit [] Trauma [] Long length of stay [] ICU visit [] Other: Relational/Emotional Strength [] Patient feels connected with others/family/visitors/staff [x] Distress [x] Loneliness/isolation [] Abandonment Spirituality of Patient [x] Person of Latisha [] Attends [employer]eterian of their Latisha [x] Believes in Prayer [] Reads Bible or Jewish materials [] There are Spiritual issues to be addressed Fancy Wire Drawer Interventions [x] Prayer [] Active listening [] Non-anxious presence [] Spiritual/emotional support [] Crisis/trauma care [] Spiritual counseling [] Bereavement support [] Provided bereavement packet [x] Provided Bible/devotional materials [] Provided toy/stuffed animal, coloring book to patient or family member [] Provided Communion [] Anointing/[place] [] Salvation [x] Completed spiritual assessment [] Other: Impact on Illness or Injury [] Angry [] Fearful [] Anxious [] Often cries [] Exhaustion [] Unable to work [] Unable to attend mandaen [] Unable to walk/stand [] Unable to read [] Unable to drive [] Unable to eat/drink [] Unable to sleep [] Unable to be with family [] Patient intubated [] Other: Summary Time spent with patient 5 min
[2022-06-10] MEDS: sodium chloride 0.9% 1,000 ML 100 ML IV (13:50)
[2022-06-10] MEDS: azithromycin 500 MG in sodium chloride 0.9% 250 ML 250 MG IV (18:06)
[2022-06-10] MEDS: enoxaparin 40 mg/0.4 mL Syringe SUBCUT (18:06)
[2022-06-11] VITALS (15 sets, daily range): BP systolic 115–135; BP diastolic 70–78; PULSE 72–115; RESP 16–22; TEMP 36.6–36.9; O2SAT 91–98
[2022-06-11] MEDS: sodium chloride 0.9% 1,000 ML 100 ML IV (00:55)
[2022-06-11] MEDS: ipratropium-albuterol 3 mL Neb INHALATION ×5 (04:06→20:48)
[2022-06-11] MEDS: potassium chloride ER 20 mEq Tablet PO (05:38)
--- NOTE | 2022-06-11 08:36 | PM.PN ---
Subjective Subjective: Patient reports continued shortness of breath, similar to yesterday's exam.. Endorses cough, describing it as productive now. Continues to endorse generalized malaise, fatigue and weakness. Reports that she lives alone. She does not feel like she be able to take care of herself in her current condition. Medications: Reviewed: Yes Vitals/I&O/Wt Last Vital Signs Temp 98.1 F 06/11/22 07:40 Pulse 92 06/11/22 07:40 Resp 16 06/11/22 07:40 BP 115/70 06/11/22 07:40 Pulse Ox 96 06/11/22 07:40 O2 Del Method 06/11/22 07:40 O2 Flow Rate 2 06/11/22 04:08 06/10/22 06/11/22 06/11/22 22:59 06:59 14:59 Intake Total 500 / 500 1480 / 1980 Balance 500 / 500 1480 / 1980 Weight last 48 hrs Weight 51.256 kg Weight 51.256 kg Physical Exam Narrative: General: Patient is awake. Frail appearing. Appears ill.. Head: Normocephalic. Atraumatic. EOM intact. Neck: No JVD. Cardiovascular: No gallops. No murmurs. Tachycardic. Lungs: Moderate air movement end expiratory wheezing. Requiring nasal cannula. Skin: No jaundice. No rashes. Abdomen: Normal bowel sounds, abdomen soft and nontender. Genito Urinary: Genital exam not performed since complaints not related. Rectal: Rectal exam not performed since no symptoms indicated blood loss. Extremities: No cyanosis or clubbing. Musculoskeletal: Rheumatic appearing joints. Kyphosis. Neurological: Moves all 4 extremities. No myoclonus. Data 06/10/22 02:40 06/10/22 02:40 A&P Assessment and plan (1) COPD (chronic obstructive pulmonary disease): Acute COPD exacerbation with acute hypoxia Patient not responding to treatment as quickly as intended Discontinue Solu-Medrol Start prednisone Continue scheduled DuoNebs Continue azithromycin Telemetry with continuous pulse oximetry (2) Influenza A: Continue Tamiflu Droplet precautions (3) Arthritis, rheumatoid: Continue home fentanyl patch Continue home oral opiates (4) Lupus: Not in acute exacerbation (5) Transaminitis: Secondary to flu (6) Debility: Debility and physical deconditioning Continue supportive care Treat underlying infection Plan DVT prophylaxis: Lovenox CODE STATUS: Full code Attestations Medical Necessity Statement*: Patient requires ongoing hospitalization for IV antibiotics, steroids, breathing treatments, supplemental oxygen support and supportive care. Anticipate discharge in next 24 to 48 hours. 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
[2022-06-11] MEDS: budesonide 0.5 mg/2 mL Neb INHALATION ×2 (09:27→20:48)
[2022-06-11] MEDS: predniSONE 20 mg Tablet 40 MG PO (09:32)
[2022-06-11] MEDS: oseltamivir phosphate 75 mg Capsule PO ×2 (09:33→17:35)
[2022-06-11] MEDS: HYDROcodone-acetaminophen 10-325 mg Tablet 1 TAB PO ×3 (09:33→23:46)
[2022-06-11] MEDS: diphenoxylate/atropine Tablet 2 TAB PO (13:12)
[2022-06-11] MEDS: azithromycin 500 MG in sodium chloride 0.9% 250 ML 250 MG IV (17:35)
[2022-06-11] MEDS: enoxaparin 40 mg/0.4 mL Syringe SUBCUT (17:43)
[2022-06-12] VITALS (9 sets, daily range): BP systolic 125–149; BP diastolic 74–78; PULSE 84–93; RESP 16–22; TEMP 36.7–36.8; O2SAT 92–94
[2022-06-12] MEDS: ipratropium-albuterol 3 mL Neb INHALATION ×3 (00:47→08:48)
[2022-06-12] MEDS: potassium chloride ER 20 mEq Tablet PO (05:38)
[2022-06-12] MEDS: HYDROcodone-acetaminophen 10-325 mg Tablet 1 TAB PO ×2 (05:39→11:38)
[2022-06-12] MEDS: budesonide 0.5 mg/2 mL Neb INHALATION (08:49)
[2022-06-12] MEDS: oseltamivir phosphate 75 mg Capsule PO (08:58)
[2022-06-12] MEDS: predniSONE 20 mg Tablet 40 MG PO (08:58)
[2022-06-12] MEDS: fentaNYL 50 mcg Patch 1 PATCH TRANSDERMA (08:59)
--- NOTE | 2022-06-12 09:07 | PC.NURSE ---
0900 - NEW FENTANYL PATCH APPLIED TO LEFT UPPER CHEST. FENTANYL PATCH REMOVED FROM RIGHT UPPER CHEST AND WASTED WITH ARIANNA HARRISON.
[2022-06-12] MEDS: diphenoxylate/atropine Tablet 2 TAB PO (10:47)
--- NOTE | 2022-06-12 11:07 | PM.DCS ---
Discharge Providers Date of Admission: 06/09/22 16:33 Date of Discharge: June 12, 2022 Attending Provider at Admission: Chin Langley MD Attending Provider at Discharge: Chin Langley MD Consults: None Primary Care Provider: Brigid Lyon MD Diagnoses at Discharge Discharge Diagnosis (1) COPD (chronic obstructive pulmonary disease): Status: Acute (2) Influenza A: Status: Acute (3) Arthritis, rheumatoid: Status: Acute (4) Lupus: Status: Acute (5) Transaminitis: Status: Acute (6) Debility: Status: Acute Reason for Visit Reason for Visit: sob Hospital Course Hospital Course Sharla Barreto is a 66-year-old female with past medical history significant for lupus, rheumatoid arthritis, COPD, and chronic pain who presented with shortness of breath, found to have acute COPD exacerbation with acute hypoxia secondary to influenza A infection. She was treated with IV steroids, breathing treatments, azithromycin, and Tamiflu. Her symptoms improved and hypoxia resolved. She was discharged with Z-Gabriele, Tamiflu, prednisone, and DuoNebs. She is follow-up with her primary care provider in 1 week. Physical Exam Narrative: General: Patient is awake.? Alert. Head:? Normocephalic. Atraumatic. EOMI. Neck: No JVD. Cardiovascular: No gallops. No murmurs. Lungs: Adequate air movement. No wheezing. No crackles. On room air. Skin: No jaundice. No rashes. Abdomen: Normal bowel sounds, abdomen soft and nontender. Genito Urinary: Genital exam not performed since complaints not related. Rectal: Rectal exam not performed since no symptoms indicated blood loss. Extremities: No cyanosis or clubbing. Musculoskeletal: Rheumatic appearing joints.? Kyphosis. Neurological: Moves all 4 extremities. No myoclonus. Discharge Data Studies Completed and Pending Completed Studies During Hospitalization Category Date Time Status XR chest 1V portable [id number] Stat Exams 06/09/22 13:23 Completed Radiology Impressions Chest X-Ray 06/09/22 13:23 IMPRESSION: 1. No acute cardiopulmonary disease. 2. Large hiatal hernia. Laboratory Results WBC 6.7 10^3/uL (4.0-10.0) 06/10/22 02:40 RBC 4.16 10^6/uL (4.1-5.3) 06/10/22 02:40 Hgb 14.1 g/dL (11.5-15.3) 06/10/22 02:40 Hct 43.2 % (37.0-47.0) 06/10/22 02:40 MCV 103.8 fl (81-99) H 06/10/22 02:40 MCH 33.9 pg (28.0-34.0) 06/10/22 02:40 MCHC 32.6 g/dL (30.0-36.0) 06/10/22 02:40 RDW 12.7 % (12.1-15.1) 06/10/22 02:40 Plt Count 159 10^3/cmm (130-400) 06/10/22 02:40 MPV 10.4 fL (7.4-10.4) 06/10/22 02:40 Neut % (Auto) 91.9 % 06/10/22 02:40 Lymph % (Auto) 5.4 % 06/10/22 02:40 [place] % (Auto) 2.4 % 06/10/22 02:40 Eos % (Auto) 0.0 % 06/10/22 02:40 Baso % (Auto) 0.0 % 06/10/22 02:40 Neut # (Auto) 6.16 10^3/uL (1.8-7.7) 06/10/22 02:40 Lymph # (Auto) 0.4 10^3/uL (0.8-4.8) L 06/10/22 02:40 [place] # (Auto) 0.2 10^3/uL (0.2-0.9) 06/10/22 02:40 Eos # (Auto) 0.0 10^3/uL (0.0-0.8) 06/10/22 02:40 Baso # (Auto) 0.0 10^3/uL (0.0-0.1) 06/10/22 02:40 Nucleated RBC % (auto) 0 % 06/10/22 02:40 Nucleated RBCs # 0.0 /100WBC 06/10/22 02:40 Sodium 137 mmol/L (136-145) 06/10/22 02:40 Potassium 3.1 mmol/L (3.5-5.1) L 06/10/22 02:40 Chloride 99 mmol/L (98-107) 06/10/22 02:40 Carbon Dioxide 26 mmol/L (22-29) 06/10/22 02:40 Anion Gap 15.1 (5-19) 06/10/22 02:40 BUN 7 mg/dL (8-23) L 06/10/22 02:40 Creatinine 0.4 mg/dL (0.5-0.9) L 06/10/22 02:40 GFR Calculation 158.7 mL/min (90-130) H 06/10/22 02:40 Glucose 220 mg/dL (65-115) H 06/10/22 02:40 Calculated Osmolality 289 mOsm/kg (285-295) 06/10/22 02:40 Calcium 8.9 mg/dL (8.5-10.5) 06/10/22 02:40 Magnesium 2.0 mg/dL (1.7-2.3) 06/10/22 02:40 Total Bilirubin 0.2 mg/dL (0.15-1.2) 06/10/22 02:40 AST 34 U/L (0-32) H 06/10/22 02:40 ALT 29 U/L (0-33) 06/10/22 02:40 Alkaline Phosphatase 92 U/L (35-105) 06/10/22 02:40 Total Protein 7.1 g/dL (6.6-8.7) 06/10/22 02:40 Albumin 3.7 g/dL (3.5-5.2) 06/10/22 02:40 Globulin 3.4 g/dL (1.3-4.6) 06/10/22 02:40 Procalcitonin 0.05 ng/mL (0-0.5) 06/09/22 14:34 Urine Color Yellow (Yellow) 06/09/22 15:30 Urine Appearance Clear (CLEAR) 06/09/22 15:30 Urine pH 6 (5-7) 06/09/22 15:30 Ur Specific [place] 1.010 (1.005-1.030) 06/09/22 15:30 Urine Protein Neg (Negative) 06/09/22 15:30 Urine Glucose (UA) 2+ (Normal) H 06/09/22 15:30 Urine Ketones 2+ (Negative) H 06/09/22 15:30 Urine Blood Neg (Negative) 06/09/22 15:30 Urine Nitrate Negative (Negative) 06/09/22 15:30 Urine Bilirubin Neg (Negative) 06/09/22 15:30 Urine Urobilinogen 1 mg/dL (Negative) H 06/09/22 15:30 Ur Leukocyte Esterase Negative (Negative) 06/09/22 15:30 Nasal Influ A H1 2009 PCR Detected (NOT DETECT) A 06/09/22 18:15 Coronavirus 229E (PCR) Not detected (NOT DETECT) 06/09/22 14:22 Influenza A (H1) PCR Not detected (NOT DETECT) 06/09/22 18:15 Influenza A (H3) PCR Not detected (NOT DETECT) 06/09/22 18:15 Influenza Type A Ag Cancelled 06/09/22 14:22 Influenza Type A (PCR) Detected (NOT DETECT) A 06/09/22 18:15 Influenza Type B Ag Cancelled 06/09/22 14:22 Influenza Type B (PCR) Not detected (NOT DETECT) 06/09/22 18:15 SARS-CoV-2 (PCR) Not detected (NOT DETECT) 06/09/22 14:22 Procedures Performed None Vitals Last Vital Signs Temp 98.3 F 06/12/22 07:44 Pulse 88 06/12/22 08:52 Resp 20 H 06/12/22 08:30 BP 131/74 06/12/22 07:44 Pulse Ox 94 06/12/22 08:30 O2 Del Method 06/12/22 08:30 O2 Flow Rate 2 06/12/22 08:00 Discharge Plan Discharge Patient Disposition: Home Condition: Stable Prescriptions: New oseltamivir 75 mg Capsule 75 mg PO BID 2 Days Qty: 4 0RF ipratropium-albuterol 0.5 mg-3 mg(2.5 mg base)/3 mL Solution For Nebulization 3 ml inhalation Q4H.RESPIRATORY 30 Days Qty: 90 0RF Rx Instructions: For COPD prednisone 20 mg Tablet 40 mg PO DAILY 5 Days Qty: 5 0RF azithromycin 250 mg tablet See Rx Instructions .ROUTE .COMPLEX Qty: 6 0RF Rx Instructions: For 250 mg dose pack: take 500 mg today (day 1), then 250 mg for 4 days (days 2-5) Continued fentanyl 50 mcg/hr patch 72 hour 1 patch TRANSDERMA Q72H diphenoxylate-atropine 2.5-0.025 mg tablet 1 tab PO TID PRN (Reason: Diarrhea) hydrocodone-acetaminophen 10-325 mg tablet 1 tab PO Q6H PRN (Reason: Pain) potassium chloride 20 mEq tablet,ER particles/crystals 20 meq PO QAM estradiol 1 mg tablet 1 mg PO Q7D Rx Instructions: on monday albuterol sulfate 90 mcg/actuation HFA aerosol inhaler 2 puff INHALATION Q4H PRN (Reason: Shortness Of Breath) colestipol 1 gram tablet 1 g PO .UP TO TID fluticasone propionate [Flovent HFA] 110 mcg/actuation HFA aerosol inhaler 2 puff INHALATION BID Discharge Orders: Discharge Order (Routine); Ordered 06/12/22 Ordered By: Chin Langley Other Ambulatory Orders: DME: Nebulizer with Neb Kit (Order) Location: None Selected Ordered By: Chin Langley Referrals: Brigid Lyon MD [Primary Care Provider] - 4-7 days Discharge Diet: Advance as tolerated and Usual diet Discharge Activity: Resume usual activity and Increase activity as tolerated Patient Instructions: Prednisone (By mouth), Azithromycin (By mouth), Oseltamivir (By mouth) (Tamiflu), Influenza (DC), Opioid Safety Plan of Treatment: 1. Take medications as prescribed. 2. Follow up with primary care provider. Discharge Attestations Time Spent in Discharge Care*: greater than 30 min Status at Discharge: Overall status at discharge: patient is progressing back to baseline Quality Metrics Clinical Quality Measures [ No reported AMI, CVA or VTE this stay] Coding Level of Care Code Acute g [facility] note Diagnoses COPD (chronic obstructive pulmonary disease) J44.9 Influenza A J10.1 Arthritis, rheumatoid M06.9 Lupus M32.9 Transaminitis R74.01 Debility R53.81
--- NOTE | 2022-06-12 11:31 | PC.SOCIAL ---
IMM update IMM updated with patient. Verbalized an understanding. Copy Pg 2 provided. Initialled, dated, timed, and placed in chart.
--- NOTE | 2022-06-12 14:18 | PC.NURSE ---
1400 - ADVANCE DIRECTIVE FILLED OUT AND TURNED IN TO CHART.
--- NOTE | 2022-06-12 15:05 | PC.NURSE ---
1505 - PT DISCHARGES HOME. LEAVES VIA PRIVATE VEHICLE WITH DAUGHTER.
== END 2022-06-12 15:04 | disposition home or self-care (01) | DRG 192 ==
LOC: ER 13:40 → MEDSURG 17:00
PROVIDERS: Admitting Provider Internal Medicine; Emergency Provider Family Medicine; PCP Family Medicine; Visit Provider Internal Medicine
DX: J44.1 Chronic obstructive pulmonary disease with (acute) exacerbation (principal); J10.1 Influenza due to other identified influenza virus with other respiratory manifestations; M06.9 Rheumatoid arthritis, unspecified; M32.9 Systemic lupus erythematosus, unspecified; G89.29 Other chronic pain; R53.81 Other malaise
CPT/HCPCS: 36415; 71045; 80053; 81003; 83735; 84145; 85025; 87631; 87635; 93005; 94640; 96365; 96372; 96375; 99285; J0456; J1650; J2920; J2930; J7030; J7050; J7512; J7626

== ENCOUNTER 2022-10-03 14:26 | Outpatient (CLI) | payer MEDICARE, OTHER, SELFPAY ==
--- NOTE | 2022-10-03 14:44 | XR_ITS ---
WS: [id number] DEXA (DUAL ENERGY X-RAY ABSORPTIOMETRY) Bone mineral density was performed using a [employer] machine. HISTORY: AGE-RELATED OSTEOPOROSIS WITHOUT PATHOLOGICAL FRACTURE COMPARISON: 09/22/2015 Lumbar spine BMD (L1-L4): 0.645 g/cm2 T score: -4.5 Z score: -2.3 Left forearm BMD: 0.562 g/cm2. T score: -3.6 Z score: -1.9 Compared to the prior study from 09/22/2015. Lumbar spine bone mineral density has decreased by 20.4%. LEFT forearm bone mineral density has decreased by 9.6%. XR/XR DEXA axial skeleton* [id number] IMPRESSION: OSTEOPOROSIS based upon the WHO classification for females. Significant decrease in bone mineral density within the lumbar spine and LEFT f orearm since the prior study.
== END 2022-10-03 14:27 | disposition home or self-care (01) ==
PROVIDERS: PCP Family Medicine; Visit Provider Family Medicine
DX: M81.0 Age-related osteoporosis without current pathological fracture (principal)
CPT/HCPCS: 77080

== ENCOUNTER 2022-10-26 10:31 | Outpatient (CLI) | payer MEDICARE, OTHER, SELFPAY ==
--- NOTE | 2022-10-26 10:48 | MM_ITS ---
WS: [id number] BILATERAL SCREENING DIGITAL TOMOSYNTHESIS MAMMOGRAM WITH CAD HISTORY: SCREENING COMPARISON: 06/11/2018, 10/09/2014 Bilateral CC and MLO views with tomosynthesis and synthetic mammography submitted. Computer aided det ection analyzed. Breast composition: The breasts are heterogeneously dense, which may obscure small masses. No suspici ous masses, microcalcifications or architectural distortion. Numerous calcifications within each [address]. Progression of calcifications but these calcifications appear benign and vascular in etiology. MM/[place] [id number] IMPRESSION: BI-RADS: 2-Benign FOLLOW UP: 1 Year Follow-up
== END 2022-10-26 10:32 | disposition home or self-care (01) ==
LOC: RAD 10:37
PROVIDERS: PCP Family Medicine; Visit Provider Family Medicine
DX: Z12.31 Encounter for screening mammogram for malignant neoplasm of breast (principal)
CPT/HCPCS: 77063; 77067

== ENCOUNTER → 2024-01-06 10:45 | Outpatient (BNVA) | payer MEDICARE, OTHER, SELFPAY | PROVIDERS: PCP Family Medicine; Visit Provider Emergency Medicine | DX: S69.91XS Unspecified injury of right wrist, hand and finger(s), sequela (principal); M81.0 Age-related osteoporosis without current pathological fracture; Z18.89 Other specified retained foreign body fragments; Y33.XXXS Other specified events, undetermined intent, sequela | CPT/HCPCS: 73110 ==

== ENCOUNTER → 2024-01-19 10:57 | Outpatient (BNVA) | payer MEDICARE, OTHER, SELFPAY | PROVIDERS: PCP Family Medicine; Visit Provider Physician Assistant | DX: S62.101A Fracture of unspecified carpal bone, right wrist, initial encounter for closed fracture; W22.03XA Walked into furniture, initial encounter | CPT/HCPCS: 73110 ==

== ENCOUNTER 2024-01-19 12:00 | Outpatient (CLI) | payer MEDICARE, OTHER, SELFPAY | END 2024-01-19 12:01 | disposition home or self-care (01) | LOC: SPT 01-22 12:24 | PROVIDERS: PCP Family Medicine; Visit Provider Physician Assistant | DX: Z46.89 Encounter for fitting and adjustment of other specified devices (principal); S52.501S Unspecified fracture of the lower end of right radius, sequela; S52.601S Unspecified fracture of lower end of right ulna, sequela; X58.XXXS Exposure to other specified factors, sequela | CPT/HCPCS: 97760; L3982 ==

== ENCOUNTER 2024-01-19 12:17 | Outpatient (CLI) | payer MEDICARE, OTHER, SELFPAY | END 2024-01-19 12:18 | disposition home or self-care (01) | LOC: SPT 12:18 | PROVIDERS: PCP Family Medicine; Visit Provider Physician Assistant | DX: S52.501A Unspecified fracture of the lower end of right radius, initial encounter for closed fracture (principal); S52.601A Unspecified fracture of lower end of right ulna, initial encounter for closed fracture; W22.8XXA Striking against or struck by other objects, initial encounter | CPT/HCPCS: 99203 ==

== ENCOUNTER → 2024-02-09 16:21 | Outpatient (BNVA) | payer MEDICARE, OTHER, SELFPAY | PROVIDERS: PCP Family Medicine; Visit Provider Emergency Medicine | DX: N10 Acute pyelonephritis (principal) | CPT/HCPCS: 81000; 87077; 87086; 87184 ==

== ENCOUNTER → 2024-03-08 10:39 | Outpatient (BNVA) | payer MEDICARE, OTHER, SELFPAY | PROVIDERS: PCP Family Medicine; Visit Provider Physician Assistant | DX: S62.101A Fracture of unspecified carpal bone, right wrist, initial encounter for closed fracture (principal); X58.XXXA Exposure to other specified factors, initial encounter | CPT/HCPCS: 73110; 99213 ==

== ENCOUNTER → 2024-03-22 13:15 | Outpatient (BNVA) | payer MEDICARE, OTHER, SELFPAY | PROVIDERS: PCP Family Medicine; Visit Provider Nurse Practitioner | DX: R39.9 Unspecified symptoms and signs involving the genitourinary system (principal) | CPT/HCPCS: 81000; 87086 ==

== ENCOUNTER 2024-04-09 16:25 | Outpatient (CLI) | payer MEDICARE, OTHER, SELFPAY ==
[2024-04-09 17:19] LABS: Bilirubin Urine 1+ (Negative); Blood Urine Negative (Negative); Glucose Urine UA Negative (Normal); Ketones Urine Negative (Negative); Leukocyte Esterase Urine 2+ (Negative); Nitrate Urine Positive (Negative); Protein Urine Trace (Negative); Specific Gravity, Urine 1.016 (1.005-1.030); Urine Appearance Clear (CLEAR); Urine Color Dark Yellow (Yellow)
[2024-04-09 17:25] LABS: Bacteria Urine None Seen /hpf; Hyaline Casts Urine 3.71 /lpf; RBC Urine 0-2 /hpf (0-2)
[2024-04-09 17:28] LABS: Add Urine Culture? No
== END 2024-04-09 16:26 | disposition home or self-care (01) ==
LOC: LAB 16:26
PROVIDERS: PCP Family Medicine; Visit Provider Family Medicine
DX: R30.0 Dysuria (principal)
CPT/HCPCS: 81001

== ENCOUNTER 2024-08-12 12:48 | Outpatient (CLI) | payer MEDICARE, OTHER, SELFPAY ==
[2024-08-12 13:29] LABS: Bilirubin Urine Negative (Negative); Blood Urine 1+ (Negative); Glucose Urine UA Negative (Normal); Ketones Urine Negative (Negative); Leukocyte Esterase Urine 3+ (Negative); Nitrate Urine Positive (Negative); Protein Urine 1+ (Negative); Specific Gravity, Urine 1.014 (1.005-1.030); Urine Appearance Turbid (CLEAR); Urine Color Yellow (Yellow); pH Urine 5.5 (5-7)
[2024-08-12 13:32] LABS: Bacteria Urine 4+ /hpf; Hyaline Casts Urine 2.46 /lpf; RBC Urine 0-2 /hpf (0-2); WBC Urine >100 /hpf (0-5)
[2024-08-12 13:40] LABS: UA Slide Review UA Slide Review Perf
== END 2024-08-12 12:49 | disposition home or self-care (01) ==
LOC: LAB 12:56
PROVIDERS: PCP Family Medicine; Visit Provider Family Medicine
DX: R30.0 Dysuria (principal)
CPT/HCPCS: 81001; 87086

== ENCOUNTER 2024-09-16 07:54 | Outpatient (CLI) | payer MEDICARE, OTHER, SELFPAY | END 2024-09-16 07:55 | disposition home or self-care (01) | LOC: LAB 08:01 | PROVIDERS: PCP Family Medicine; Visit Provider Family Medicine | DX: R30.0 Dysuria (principal) | CPT/HCPCS: 87086 ==

== ENCOUNTER 2025-02-17 15:58 | Outpatient (CLI) | payer MEDICARE, OTHER, SELFPAY ==
[2025-02-17 16:29] LABS: Hematocrit 35.7 % (36-47); Hemoglobin 11.70 g/dL (11.27-16.99); Mean Corpuscular HGB Conc 32.8 g/dL (30-55); Mean Corpuscular Hemoglobin 32.7 pg (27-33); Mean Corpuscular Volume 99.7 fl (85-98); Nucleated Red Blood Cells % 0 %; Platelet Count 268 10^3/cmm (157-399); Red Blood Count 3.58 10^6/uL (3.85-5.65); White Blood Count 6.20 10^3/uL (3.29-11.43)
[2025-02-17 16:55] LABS: Estmated Average Glucose 100; Hemoglobin A1C 5.1 % (4.0-6.0)
[2025-02-17 17:41] LABS: Alanine Aminotransferase 12 U/L (0-33); Albumin Level 3.7 g/dL (3.5-5.2); Alkaline Phosphatase 88 U/L (35-105); Anion Gap 14.7 (5-19); Aspartate Amino Transferase 15 U/L (0-32); Blood Urea Nitrogen 12 mg/dL (8-23); Calcium 8.8 mg/dL (8.5-10.5); Carbon Dioxide 24 mmol/L (22-29); Chloride 100 mmol/L (98-107); Cholesterol 131 mg/dL (0-200); Globulin 3.0 g/dL (1.3-4.6); Glucose 94 mg/dL (65-115); HDL Cholesterol 76 mg/dL (60-100); Osmolality Calculated 280 mOsm/kg (285-295); Potassium 3.7 mmol/L (3.5-5.1); Sodium 135 mmol/L (136-145); Thyroid Stimulating Hormone 2.74 uIU/mL (0.27-4.20); Total Protein 6.7 g/dL (6.6-8.7); Triglycerides 71 mg/dL (0-150); Vitamin B12 387 pg/mL (232-1245)
== END 2025-02-17 15:59 | disposition home or self-care (01) ==
PROVIDERS: PCP Family Medicine; Visit Provider Nurse Practitioner Family
DX: M81.0 Age-related osteoporosis without current pathological fracture (principal)
CPT/HCPCS: 36415; 80053; 80061; 82306; 82607; 83036; 84443; 85025

== ENCOUNTER → 2025-03-18 09:42 | Outpatient (BNVA) | payer MEDICARE, OTHER, SELFPAY | PROVIDERS: PCP Family Medicine; Visit Provider Physician Assistant | DX: S52.502A Unspecified fracture of the lower end of left radius, initial encounter for closed fracture (principal); S52.612A Displaced fracture of left ulna styloid process, initial encounter for closed fracture; W19.XXXA Unspecified fall, initial encounter | CPT/HCPCS: 73110; 99214 ==

== ENCOUNTER 2025-03-20 11:40 | Day surgery (SDC) | payer MEDICARE, OTHER, SELFPAY ==
[2025-03-20] VITALS (11 sets, daily range): BP systolic 126–169; BP diastolic 74–108; PULSE 78–96; RESP 13–23; TEMP 36.3–36.9; O2SAT 93–96; BMI 23.8
[2025-03-20] MEDS: acetaminophen 1,000 MG/100 ML PIGGYBACK 400 MG IV (13:03)
--- NOTE | 2025-03-20 13:41 | P.ANESASSM_ITS ---
Pre-Anesthetic Assessment Height/Weight: Height 1.47 m Weight 51.71 kg Temp Pulse Resp BP Pulse Ox O2 Del Method 97.9 F 80 16 133/88 96 Room Air 03/20/25 12:51 03/20/25 12:51 03/20/25 12:51 03/20/25 12:51 03/20/25 12:51 03/20/25 12:51 Operation Date: 03/20/25 14:35 Proposed Procedures p LEFT Open Reduction Internal Fixation Distal Radius(Left) - Ruben Harlan, DO Familial anesthetic complications: None Was Beta Jesika taken within 24 hours: N/A Was Clonidine taken within 24 hours: N/A Last intake: Intake Last Liquid Date 03/19/25 Last Liquid Time 21:00 Last Solid Date 03/19/25 Last Solid Time 21:00 Social No alcohol and No tobacco Exam alert, oriented x 3, clear to auscultation bilaterally and regular rate & rhythm Airway Mallampati: Class I Dentition: full Pulmonary Chronic Obstructive Pulmonary Disease Musc/skel lupus Anesthetic Plan ASA status: 3 Anesthesia: General and Regional (specify below) Risk of > 500 ml blood loss (7ml/kg in children): No Medications/Allergies Home Medications ?Medication ?Instructions ?Recorded ?Confirmed ?Last Taken ?Type albuterol sulfate 90 mcg/actuation 2 puff inhalation Q 4H PRN 06/09/22 03/19/25 Unknown History aerosol inhaler Shortness Of Breath colestipol 1 gram tablet 1 g PO BID 06/09/22 03/19/25 03/19/25 History fluticasone propionate 110 2 puff inhalation BID 06/0903/19/25 03/19/25 History mcg/actuation HFA aerosol inhaler (Flovent HFA) potassium chloride 20 mEq 20 meq PO QAM 06/09/2203/1903/19/25 History tablet,extended release(part/cryst) hydrocodone 10 mg-acetaminophen 1 tab PO QID PRN pain 5 days #20 01/06/24 03/19/25 03/20/25 Rx 325 mg tablet tabs right wrist volar fast form #1 ea 01/19/24 03/18/25 U nknown Rx left cock up wrist brace #1 ea 03/18/25 03/18/25 Unkn own Rx fentanyl 25 mcg/hr transdermal 25 mcg transdermal D IRECTED 03/19/25 03/19/25 03/20/25 History patch Allergies Allergy/AdvReac Type Severity Reaction Status Date / Time amoxicillin (From Augmentin) Allergy RASH Verified 03/18/25 10:26 ciprofloxacin (From Cipro) Allergy RASH Verified 03/18/25 10:26 clavulanic acid (From Allergy RASH Verified 03/18/25 10:26 Augmentin) methotrexate Allergy RASH Verified 03/18/25 10:26 NSAIDS (Non-Steroidal Allergy RASH Verified 03/18/25 10:26 Anti-Inflamma [facility] Anesthesia Medical History (Updated 03/18/25 @ 10:59 by LAURO Boyd) COPD (chronic obstructive pulmonary disease) Lupus Arthritis, rheumatoid Surgical History History of kyphoplasty History of hip surgery History of section History of hysterectomy Family History Mother Lupus Social History Smoking and tobacco/nicotine status: unknown if used tobacco/nicotine Alcohol intake: never Substance/Drug Use: never Anesthesia Procedures Nerve Block Nerve Block 1: Main Anesthesia: general anesthesia Time Out Performed: Yes Consent: requested by attending/covering physician, from patient, from other, risks and benefits reviewed and patient agrees to proceed Nerve block location: axillary (L) Anesthesia monitors applied: pulse oximetry, EKG, BP cuff and oxygen Nerve block position: supine Anesthetic Used: ropivicaine 0.5% (20 ml) and with decadron (3 mg) Ultrasound used to: recognize landmarks and visualize and ID brachial plexus Nerve Stimulator Used?: No Interscalene/Femoral BLK: 2 stimuplex 22 g needle used for position and inplane approach, visualize local anesthetic spread and no vascular puncture identified Injection: neg aspiration of heme Patient Tolerated Procedure: well Complications: none
--- NOTE | 2025-03-20 13:50 | SUR.PREOP ---
13:30 left axillary nerve block performed by Dr Rivera using 20ml of 0.5% ropivacaine with decadron 3mg. PT on monitor showing NSR. tolerated procedure well.
--- NOTE | 2025-03-20 14:23 | W.PM.OPSUD ---
Surgery/Procedure H&P Update DATE OF PROCEDURE: March 20, 2025 DATE H&P PERFORMED: 03/18/25 H&P UPDATE INFORMATION: I have reviewed H&P completed within last 30 days, I have examined patient prior to procedure and No changes to prior documentation PREOP DIAGNOSIS: Left distal radius displaced and angulated intra-articular fracture PRIMARY INDICATION FOR PROCEDURE: Left distal radius displaced and angulated intra-articular fracture PLANNED PROCEDURE: Operation Date: 03/20/25 14:35 Proposed Procedures p LEFT Open Reduction Internal Fixation Distal Radius(Left) - Ruben Mejia DO
[2025-03-20] MEDS: ceFAZolin 2,000 MG in sodium chloride 0.9% (plus) 50 ML 100 MG IV (16:03)
--- NOTE | 2025-03-20 17:41 | W.PM.BPON ---
Date of Procedure: [March 20, 2025] Surgeon: [Dr. Mejia DO] Senior Systems Architect(s): [Chin Mejia PA-C] Procedure(s) performed: [Left distal radius open reduction internal fixation (greater than 3 part intra articular)] Findings of the procedure(s): [Left distal radius displaced fracture. Procedure went well and is planned] Estimated blood loss: [10 mL] Specimen(s) removed: [N/A] Post-operative diagnosis: [Left distal radius displaced fracture]
--- NOTE | 2025-03-20 17:45 | P.PCN_ITS ---
PACU note Narrative: Patient is a 69-year-old female that just underwent left distal radius ORIF. Patient transferred to PACU in stable condition. Pain is well controlled. Dressing on hand is dry and in place. Patient's fingers are warm and well- perfused. normal cap refill under 2 seconds. Unable to perform any further assessment of motion. Unable to assess sensation due to residual localized anesthetic. Exam: awake Disposition: discharged
--- NOTE | 2025-03-20 17:50 | PM.OP ---
Operative Report Date of procedure: March 20, 2025 Surgeon: Ruben Mejia DO Licensed Clinical Social Worker: Chin Mejia PA-C: PA was necessary for assistance in this case with arm positioning to execute the procedure, protection of neurovascular structures, assistance with instrumentation, as well as fracture reduction and implant fixation, assist with wound closure and dressing application and splint application. Procedure: Preop Diagnosis ?Left?distal?radius fracture ? Procedure: Post-op diagnosis: Same, 3 part intra-articular Procedure done: Left?distal?radius open reduction internal fixation, 3-part intra-articular Implants: ?Arthrex left 3-hole standard volar locking plate Combination of locking and nonlocking screws 2.7 mm?distal Combination of locking and nonlocking screws 3.5 mm proximal Surgeon: Ruben Mejia DO Anesthesia: General and nerve Block (Regional) Estimated blood loss: 10 mL Tourniquet time: 40 minutes IV fluids: 600 mL Complications: None Findings: See operative report narrative Condition: stable Disposition: same day Brief History: Patient is a 69-year-old female who presented to office for a [id number] left?distal?radius fracture.? Patient has significant comminution and shortening as well as dorsal angulation patient active and at this point time through shared decision making patient like to proceed with a left?distal?radius ORIF.? We had a detailed discussion in the office about nonoperative and operative intervention.? At this point time I feel through shared decision? best option would be open reduction internal fixation she is active and already has a considerable deformity?? as result through shared decision making patient would like to proceed with ORIF left?distal?radius fracture.? Detail the risk benefits complication alternatives to treatment option.? Understanding risk for surgery patient elects to proceed with surgical intervention.? All questions been answered at this time. Procedure: Patient seen and evaluated in the preoperative holding area.? Consent reviewed and signed with patient.? Correct extremities were marked and consent was reviewed and signed.? Patient was seen and evaluated by anesthesia department.? Underwent regional anesthesia. Once cleared for surgery pt was taken back to the operative suite.? Patient was then transported into the operative suite and kept on the OR gurney, all bony prominences well-padded patient was appropriate secured to bed in supine position.? An armboard was applied to the left upper extremity.? The left upper extremity had a nonsterile tourniquet applied.? Patient subsequently was then prepped and draped in standard orthopedic fashion she underwent anesthesia per the anesthesia department.? A final timeout was performed.? Patient received appropriate preoperative antibiotics. Esmarch was used exsanguinate the left upper extremity and tourniquet was insufflated to 250 mmHg. A standard modified FCR volar approach was performed to the left?distal?radius.? Sharp scalpel incision through skin and subcutaneous tissue.? I then switched to Littler dissection scissors identify the FCR tendon releases out of the sheath both proximally and?distally mobilized the tendon ulnarly and then subsequently incised the floor of the FCR tendon sheath with care to just incise the floor.? I then bluntly sweep the FPL tendon muscle belly ulnarly and placed blunt self-retaining retractor.? At this point time I direct visualization of the pronator quadratus which was incised in standard L fashion off the?radial and?distal?border in the?distal?radius and fracture site was scraped clean of interposed muscle belly.? I then identified the 3 part intra-articular?distal?radius fracture.? This was subsequently opened above and freed of interposing muscle belly as well as periosteum and fracture hematoma.? I did have to utilize my [place] which was placed through the fracture pattern and disengage the fracture and performed manual manipulation and anatomic reduction of the?distal?radius fracture.? ?Once satisfied with reduction and had appropriate anatomic reduction of the volar cortex.? This was confirmed with mini C arm in multiple orthogonal imaging.? At this point time? I selected a Arthrex anatomic?distal?radius plate utilizing a standard 3-hole plate which would have appropriate spread?distally.? This was then placed up to the?distal?radius while maintaining my reduction, pins were placed?distally and proximally to confirm appropriate placement of the plate along the?distal?radius.? Minor adjustments were made and once I was satisfied I then subsequently drilled a bicortical 3.5 screw proximally in the oblong hole to allow for appropriate sliding of the?distal?radius plate appropriately to perfect position on the?distal?radius.? This had excellent fixation and purchase and brought the plate to bone.? While maintaining my reduction I then confirmed in multiple orthogonal imaging that my plate was in appropriate position.? Once satisfied with my position I then subsequently placed the peek targeting guide on the?distal?locking screws with Arthrex.? The locking guide was then subsequently loaded and I subsequently drilled and placed a fully threaded cortical screw to compress the plate to bone for the?distal?fracture fragment.? This was performed with plan to then remove this and placed a shorter locking screw had bicortical fixation with excellent purchase and appropriate reduction of my volar tilt and bringing plate to bone of the?distal?fragment and plate.? Once I was satisfied with my plate position as well as reduction of the?distal?radius which was confirmed on AP oblique and lateral imaging I then subsequently drilled measured and placed 4 locking screws around this cortical screw.? Then I subsequently removed the cortical screw and placed a shorter locking screw that did not penetrate the dorsal cortex.?? This completed my?distal?fixation.? I did utilize mini C arm to confirm appropriate placement of the screws these were all within the?distal?radius and no joint involvement within the?radiocarpal joint or the DRUJ.? These had appropriate subchondral support and maintenance of reduction and fixation of the?distal?radius fracture.? ?I then turned my attention proximally and then I screwed in the locking guides for my final to screws proximally these were then subsequently drilled measured and appropriate length locking screws were then placed proximally with excellent fixation and locking technology into the plate.? This completed my construct.? The peek guide was subsequently removed and final imaging of the left?distal?radius open reduction internal fixation was taken of AP lateral as well and is orthogonal imaging.? I then took a inclination view which showed my?radial styloid screw was out of the penetration of the joint.? All my?distal?screws were appropriate length did not penetrate dorsal cortex and did not penetrate the joint.? This completed my fixation.? Smooth wrist range of motion was then noted with no evidence of clicking. Wrist was then taken through pronation supination and stressed the DRUJ which was found to be stable.? The wound was then thoroughly irrigated.? Tourniquet was then subsequently deflated.? Hemostasis satisfactory with bipolar electrocautery.? I then subsequently placed interrupted 3-0 Vicryl sutures for subcutaneous tissue and then subsequently placed a nylon the skin for closure.? Incision was then dressed with Xeroform 4 x 4's Kerlix cast padding and a volar Ortho-Glass splint was then applied with Geo wrap and placed in a sling.? Disposition: Patient taken to PACU in stable condition recovering well receive appropriate discharge instructions as well as pain medication postoperatively.? Maintain splint until follow-up.? Nonweightbearing to operative upper extremity We will follow-up with ortho in the office in 2 weeks.? If any questions or concerns feel free to contact the office.
--- NOTE | 2025-03-20 18:40 | ANE.PACU2 ---
Inpatient post-anesthesia follow up: Airway intact: Yes Vital signs: Temperature 98.5 F Pulse Rate 91 Respiratory Rate 18 Blood Pressure 137/104 Pulse Oximetry 93 Oxygen Delivery Me thod Room Air Oxygen Flow Rate Fraction of Inspir ed Oxygen Hydration adequate: Yes Nausea and vomiting: No Pain level: 1 Mental status: Baseline
== END 2025-03-20 18:43 | disposition home or self-care (01) ==
PROVIDERS: Visit Provider Student in an Organized Health Care Education/Training Program
PROC: (CPT 25609; principal; 2025-03-20 14:25)
DX: S52.502A Unspecified fracture of the lower end of left radius, initial encounter for closed fracture (principal); W19.XXXA Unspecified fall, initial encounter; J44.9 Chronic obstructive pulmonary disease, unspecified; M32.9 Systemic lupus erythematosus, unspecified; M06.9 Rheumatoid arthritis, unspecified; Z79.891 Long term (current) use of opiate analgesic
CPT/HCPCS: 25609; C1713 ×2; J0131; J0690; J1100; J2405; J2704; J2795; J7030

== ENCOUNTER 2025-04-02 05:00 | Outpatient (CLI) | payer MEDICARE, OTHER, SELFPAY | END 2025-04-02 05:01 | disposition home or self-care (01) | LOC: SOT 04-24 16:54 | PROVIDERS: Visit Provider Physician Assistant | DX: Z46.89 Encounter for fitting and adjustment of other specified devices (principal); S52.502A Unspecified fracture of the lower end of left radius, initial encounter for closed fracture; X58.XXXA Exposure to other specified factors, initial encounter | CPT/HCPCS: 97760; 99024; L3906 ==

== ENCOUNTER 2025-04-02 06:30 | Outpatient (RCR) | payer MEDICARE, OTHER, SELFPAY | END 2025-05-02 23:59 | disposition home or self-care (01) | LOC: SOT 06:30 | PROVIDERS: Visit Provider Physician Assistant | DX: S52.502A Unspecified fracture of the lower end of left radius, initial encounter for closed fracture (principal); X58.XXXA Exposure to other specified factors, initial encounter | CPT/HCPCS: 97110; 97165 ==

== ENCOUNTER → 2025-04-02 13:50 | Outpatient (BNVA) | payer MEDICARE, OTHER, SELFPAY | PROVIDERS: PCP Family Medicine; Visit Provider Physician Assistant | DX: Z98.890 Other specified postprocedural states (principal); Z87.81 Personal history of (healed) traumatic fracture | CPT/HCPCS: 73110 ==

== ENCOUNTER → 2025-04-16 15:33 | Outpatient (BNVA) | payer MEDICARE, OTHER, SELFPAY | PROVIDERS: Visit Provider Physician Assistant | DX: Z98.890 Other specified postprocedural states (principal); Z87.81 Personal history of (healed) traumatic fracture | CPT/HCPCS: 73110; 99024 ==

== ENCOUNTER → 2025-04-30 14:29 | Outpatient (BNVA) | payer MEDICARE, OTHER, SELFPAY | PROVIDERS: Visit Provider Physician Assistant | DX: Z98.890 Other specified postprocedural states (principal); Z47.89 Encounter for other orthopedic aftercare; Z87.81 Personal history of (healed) traumatic fracture; S52.502D Unspecified fracture of the lower end of left radius, subsequent encounter for closed fracture with routine healing; X58.XXXD Exposure to other specified factors, subsequent encounter | CPT/HCPCS: 73110; 99024 ==

== ENCOUNTER 2025-04-30 15:16 | Outpatient (CLI) | payer MEDICARE, OTHER, SELFPAY | END 2025-04-30 15:17 | disposition home or self-care (01) | LOC: SPT 15:16 | PROVIDERS: Visit Provider Physician Assistant | DX: Z47.89 Encounter for other orthopedic aftercare (principal); Z98.890 Other specified postprocedural states; Z87.81 Personal history of (healed) traumatic fracture; S52.502D Unspecified fracture of the lower end of left radius, subsequent encounter for closed fracture with routine healing; X58.XXXD Exposure to other specified factors, subsequent encounter | CPT/HCPCS: L3908 ==

== ENCOUNTER → 2025-06-04 14:18 | Outpatient (BNVA) | payer MEDICARE, OTHER, SELFPAY | PROVIDERS: PCP Family Medicine; Visit Provider Physician Assistant | DX: Z98.890 Other specified postprocedural states (principal); Z87.81 Personal history of (healed) traumatic fracture | CPT/HCPCS: 73110; 99024 ==

== ENCOUNTER 2025-07-02 12:30 | Outpatient (CLI) | payer MEDICARE, OTHER, SELFPAY ==
--- NOTE | 2025-07-02 12:40 | MM_ITS ---
WS: [id number] BILATERAL 3D TOMOSYNTHESIS DIGITAL SCREENING MAMMOGRAPHY WITH CAD CLINICAL INFORMATION: Screening HISTORY: Screening mammogram. No current complaints. COMPARISON: 2022 TECHNIQUE: Bilateral CC and MLO views. FINDINGS: The breasts are composed of heterogeneous fibroglandular density tissue, which can limit the detection of small underlying mass lesions. No suspicious mass, asymmetry, calcifications, or architectural distortion. No evidence of malignancy. Vascular calcification. Dystrophic and clustered coarse calcifi cations MM/MM [facility] tomosynthesis [id number] IMPRESSION: DENSITY: The breasts are heterogeneously dense, which may obscure small masses. BI-RADS: 2 - Benign FOLLOW UP: 1 Year Follow-up Recommend return to annual screening mammography.
--- NOTE | 2025-07-02 13:00 | XR_ITS ---
WS: [id number] DEXA (DUAL ENERGY X-RAY ABSORPTIOMETRY) Bone mineral density was performed using a [employer] machine. HISTORY: Osteoporosis COMPARISON: 10/03/2022, 09/22/2015 Lumbar spine BMD (L1-L4): 0.560 g/cm2 T score: -5.2 Z score: -3.1 RIGHT forearm BMD: 0.466. T score: -4.7 Z score: -2.7 Compared to the prior study from 10/03/2022. Lumbar spine bone mineral density has decreased by 13.3%. Bone mineral density compared to 09/22/2015 within the RIGHT forearm. Bilateral hips bone mineral density has decreased by 18.8%. XR/XR DEXA axial skeleton* [id number] IMPRESSION: OSTEOPOROSIS based upon the WHO classification for females. Significant decrease in bone mineral density within both the lumbar spine and R IGHT forearm since the prior exams.
== END 2025-07-02 12:31 | disposition home or self-care (01) ==
LOC: RAD 12:31
PROVIDERS: PCP Family Medicine; Visit Provider Family Medicine
DX: Z12.31 Encounter for screening mammogram for malignant neoplasm of breast (principal); Z13.820 Encounter for screening for osteoporosis; Z78.0 Asymptomatic menopausal state; M81.8 Other osteoporosis without current pathological fracture; R92.333 Mammographic heterogeneous density, bilateral breasts; R92.323 Mammographic fibroglandular density, bilateral breasts; R92.1 Mammographic calcification found on diagnostic imaging of breast
CPT/HCPCS: 77063; 77067; 77080